=== PATIENT | male | born 1950 | race Hispanic/Latino ===

== ENCOUNTER 2016-10-09 06:26 | Day surgery (SDC) | payer MEDICAID ==
[2016-10-09 07:07] VITALS: BMI 21.4
[2016-10-09] MEDS ORDERED: Phenytoin 100 mg/2 ml Inj IVP ONE (08:00)
--- NOTE | 2016-10-09 08:37 | CP.SDSHP ---
Same Day Surgery H & P - History Proposed Procedure: EGDw/PEG. EGDw/espohageal stent Pre-Op Diagnosis: SCC of espohagus. Wt loss. Dysphagia - Previous Medical/Surgical History Previous Surgical History: EGD/EMR - Allergies Allergies: Allergies No Known Allergies Allergy (Verified 10/09/16 07:07) - Physical Exam General Appearance: nl Vital Signs: Vital Signs 10/09/16 07:12 Temperature 97.2 F L Pulse Rate 80 Respiratory 20 Rate Blood Pressure 113/70 O2 Sat by Pulse 98 Oximetry Mental Status: Alert & Oriented x3 Neuro: WNL Heart: WNL Lungs: WNL GI: WNL - {Optional Preform as Required} Abdomen: WNL - Impression Impression: SCC of esophagus with dysphagia. EGD w/PEG. EGD w/stent Pt. Evaluated Today:Candidate for Anesthesia & Procedure: Yes - Date & Time Date: 10/09/16 Time: 08:37 Short Stay Discharge - Short Stay Discharge Admitting Diagnosis/Reason for Visit: MALIGNANT NEOPLASM OF ESOPHAGUS, UNSPECIFIED Disposition: HOME/ ROUTINE Referrals: Helder Jacobson MD [Primary Care Provider] - Instructions: Renal Failure Diet (GEN)
[2016-10-09] MEDS ORDERED: ceFAZolin 1 gm FROZEN Premix 1 GM/50 ML ML IVPB STA (08:41)
[2016-10-09] MEDS ORDERED: Propofol 10 mg/ml Inj (20 ML) ONE (08:44)
[2016-10-09] MEDS ORDERED: Succinylcholine Chloride 20 mg/ml Syr (5 ml) IV ONE (08:44)
[2016-10-09] MEDS ORDERED: Lidocaine Hydrochloride 5 ML INJ ONE (08:45)
[2016-10-09] MEDS ORDERED: Rocuronium 10 mg/ml (10 ml) ONE (09:07)
--- NOTE | 2016-10-09 09:09 | CP.PCM.CON ---
History of Present Illness - History of Present Illness History of Present Illness: Gastroenterology Fellow/PGY5 Consult Note 66 year old male wit history of SCC of esophagus s/p chemoradiation, EMR 07/2016 , and radiation induced esophageal stricture presenting for same day surgery esophageal stent and PEG placement. Patient notes progressive intermittent dysphagia, nausea, and vomiting since last EGD 07/2016. He has had unintentional weight loss of 33 pounds since 08/04/16. Denies abdominal pain, hematemesis, diarrhea, melena, or hematochezia. EGD performed with observed progressive esophageal stricture require CRE 10--12 dilation followed by esophageal stent [id number]. Past Patient History - Infectious Disease Hx of Infectious Diseases: None - Past Medical History & Family History Past Medical History?: Yes - Past Social History Smoking Status: Light Smoker < 10 Cigarettes Daily - CARDIAC Hx Heart Attack: No Hx Hypercholesterolemia: Yes - PULMONARY Hx Sleep Apnea: No - NEUROLOGICAL Hx Neurological Disorder: Yes HX Cerebrovascular Accident: No Hx Seizures: Yes (LAST SEIZURE 25 YEARS AGO) Hx Transient Ischemic Attacks (TIA): No Other/Comment: PT. DOES NOT KNOW WHY HE HAD SEIZURES 25 YEARS AGO; BUT HE STILL CONTINUES THE PHENYTOIN. CA ESOPHAGUS WITH RADIATION ESOPHAGITIS. - HEENT Hx HEENT Problems: Yes Other/Comment: DYSPHAGIA FROM ESOPHAGEAL CA. - RENAL Hx Chronic Kidney Disease: No - ENDOCRINE/METABOLIC Hx Endocrine Disorders: No - HEMATOLOGICAL/ONCOLOGICAL Hx Blood Transfusions: No Hx Cancer: Yes (ESOPHAGEAL) Hx Chemotherapy: Yes (AND RADIATION 1 YEAR AGO) - INTEGUMENTARY Hx Dermatological Problems: No - MUSCULOSKELETAL/RHEUMATOLOGICAL Hx Falls: No Hx Fractures: No - GASTROINTESTINAL Hx Gastrointestinal Disorders: Yes Hx Pancreatitis: Yes (CHRONIC ALCOHOL) HX Swallowing Problems: Yes Other/Comment: SQUAMOUS CELL ESOPHAGEAL CANCER, DX. 1 YEAR AGO; H/O RADIATION ESOPHAGITIS; DENA ESOPHAGITIS - GENITOURINARY/GYNECOLOGICAL Hx Genitourinary Disorders: No - PSYCHIATRIC Hx Psychophysiologic Disorder: No Hx Substance Use: Yes (ALCOHOL) - SURGICAL HISTORY Hx Surgeries: No - ANESTHESIA Hx Anesthesia: No (IV SEDATION ONLY.) Hx Anesthesia Reactions: No Hx Malignant Hyperthermia: No Has any member of the family had a problem w/ anesthesia?: No Meds Allergies/Adverse Reactions: Allergies Allergy/AdvReac Type Severity Reaction Status Date / Time No Known Allergies Allergy Verified 10/09/16 07:07 - Medications Medications: Current Medications Enoxaparin Sodium (Lovenox) 40 mg SC DAILY RACHNA Cefazolin Sodium (Ancef) 1 gm in 50 mls @ 100 mls/hr IVPB STAT STA Stop: 10/09/16 09:10 Results - Vital Signs Recent Vital Signs: Last Vital Signs Temp 97.2 F L 10/09/16 08:38 Pulse 80 10/09/16 08:38 Resp 20 10/09/16 08:38 BP 113/70 10/09/16 08:38 Pulse Ox 98 10/09/16 08:38
[2016-10-09] MEDS ORDERED: HYDROmorphone 0.5 mg/0.5 ml ISec IVP PRN (09:57)
[2016-10-09] MEDS ORDERED: Lactated Ringer's 1,000 ML IV SCH (10:00)
[2016-10-09] MEDS ORDERED: Enoxaparin 40 mg Syringe SC SCH (10:00)
[2016-10-09] MEDS ORDERED: Iohexol 240 (50 ml) ONE (10:05)
[2016-10-09 10:35] VITALS: TEMP 97.5
[2016-10-09 10:52] VITALS: O2SAT 99
[2016-10-09 13:40] VITALS: BP 155/97; PULSE 71; RESP 19
--- NOTE | 2016-10-09 15:22 | RAD ---
PROCEDURE: Intraoperative fluoroscopy HISTORY: ESOPHAGEAL STRICTURE COMPARISON: Not available TECHNIQUE: Intraoperative fluoroscopy was provided for placement of an esophageal stent. Total time of fluoroscopy was 141 seconds. FINDINGS: Multiple fluoroscopic spot films are submitted. These films are on file for review. IMPRESSION: Fluoroscopy provided.
== END 2016-10-09 13:40 | disposition home or self-care (01) ==
LOC: C.ENDO 06:26 → C.9S 08:42 → UNDOADMOB 08:42 → UNDODISOB 11:17 → C.ENDO 13:40
PROVIDERS: ATTEND Internal Medicine
DX: C15.4 Malignant neoplasm of middle third of esophagus (principal); K22.2 Esophageal obstruction; R13.10 Dysphagia, unspecified; R63.4 Abnormal weight loss
CPT/HCPCS: 43266; 76000; C1874; J0690; J1165; J1170; J1650; J2405